=== PATIENT | female | born 1970 | race Two or more races ===

== ENCOUNTER 2020-08-25 18:49 | Inpatient (IN) | payer MEDICAID ==
[~2020-08-25] VITALS: Ht 154.9 cm; Wt 88.0 kg
[2020-08-25] MEDS ORDERED: MORPHINE SULFATE 4 MG/ML SYR/VIAL IV ONE (19:15)
[2020-08-25] MEDS ORDERED: SODIUM CHLORIDE 0.9% 500 ML IVB ONE (19:15)
[2020-08-25] MEDS ORDERED: ONDANSETRON HCL 4 MG/2 ML VIAL IV ONE (19:15)
[2020-08-25] MEDS ORDERED: metroNIDAZOLE 500MG/100ML 100 ML IV ONE (20:15)
[2020-08-26 00:40] LABS: Basophils # (auto) 0 10 ^3/uL (0-0.2); Basophils % (auto) 0.5 % (0.0-2.0); Eosinophils # (auto) 0.1 10 ^3/uL (0-0.8); Eosinophils % (auto) 1.2 % (0.0-7.0); Hematocrit 39.8 % (36.0-46.0); Hemoglobin 14.1 g/dL (12.2-16.2); Lymphocytes # (auto) 1.6 10 ^3/uL (0.4-5.4); Lymphocytes % (auto) 18.8 % (10.0-50.0); Mean Corpuscular Hemoglobin 32.3 pg (28.0-32.0); Mean Corpuscular Hgb Conc. 35.4 g/dL (32.0-36.0); Mean Corpuscular Volume 91.3 fL (80.0-100.0); Monocytes # (auto) 0.8 10 ^3/uL (0-1.3); Monocytes % (auto) 8.8 % (0.0-12.0); Neutrophils # (auto) 6.2 10 ^3/uL (1.6-8.6); Neutrophils % (auto) 70.7 % (37.0-80.0); Nucleated Red Blood Cells % 0.1 %; Red Blood Cells 4.36 10^6/uL (4.0-5.20); Red Cell Distribution Width 13.5 % (11.8-14.3); White Blood Cell 8.7 10^3/uL (4.4-10.8)
[2020-08-26] MEDS ORDERED: cefTRIAXone 1GM/50ML D5W 50 ML IV ONE (00:45)
[2020-08-26] MEDS ORDERED: ONDANSETRON HCL 4 MG/2 ML VIAL IV PRN (00:45)
[2020-08-26] MEDS: SODIUM CHLORIDE 0.9% 1,000 ML IV SCH ×2 (00:45→12:31)
[2020-08-26 01:05] LABS: Alanine Aminotransferase 127 U/L (13-56); Anion Gap 8 (5-15); Aspartate Aminotransferase 249 U/L (15-37); BUN/Creatinine Ratio 17.3; Blood Urea Nitrogen 13 mg/dL (7-18); Calcium 8.7 mg/dL (8.5-10.1); Carbon Dioxide 24 mmol/L (21-32); Chloride 109 mmol/L (98-107); GFR African American 104 mL/min; GFR Non-African American 86 mL/min; Glucose 91 mg/dL (74-106); Lipase 175 U/L (73-393); Sodium 141 mmol/L (136-145)
[2020-08-26 01:10] LABS: Alkaline Phosphatase 114 U/L (45-117); Bilirubin, Total 0.6 mg/dL (0.2-1.0); Total Protein 7.7 g/dL (6.4-8.2)
[2020-08-26] MEDS: metroNIDAZOLE 500MG/100ML 100 ML IV SCH ×3 (06:17→23:11)
[2020-08-26] MEDS: PANTOPRAZOLE 40 MG/10 ML VIAL INJ IV SCH (08:18)
[2020-08-26] MEDS: cefTRIAXone 1GM/50ML D5W 50 ML IV SCH (08:18)
[2020-08-26 09:02] LABS: Urine Bacteria FEW /hpf (None Seen); Urine Blood Negative /uL (Negative); Urine Mucus FEW (None Seen); Urine Specific Gravity 1.029 (1.001-1.035); Urine WBC 9 /hpf (0 - 5)
[2020-08-26] MEDS ORDERED: LANS15CA25 PO (11:50)
[2020-08-26] MEDS ORDERED: NITR0.4S29 SL (11:50)
[2020-08-26] MEDS ORDERED: HYDR200T36 PO (11:50)
[2020-08-26] MEDS ORDERED: CHOL500023 PO (11:50)
[2020-08-26] MEDS ORDERED: LEVO88TA4 PO (11:50)
[2020-08-26] MEDS ORDERED: MONT-8 PO (11:50)
[2020-08-26] MEDS ORDERED: METH2.5T PO (11:50)
[2020-08-26 14:25] VITALS: BP 121/76
[2020-08-26 16:49] VITALS: BP 107/65
[2020-08-26] MEDS ORDERED: INFLUENZA QUAD 2020-2021 0.5 ML SYRG IM ONE (19:00)
[2020-08-26 22:00] VITALS: BP 109/59
[2020-08-26] MEDS: FAMOTIDINE (10MG/ML) 2ML VL IV SCH (23:12)
[2020-08-26 23:40] VITALS: BP 106/71
[2020-08-26] MEDS: MORPHINE SULFATE 4 MG/ML SYR/VIAL IV PRN (23:43)
[2020-08-27] MEDS: SODIUM CHLORIDE 0.9% 1,000 ML IV SCH ×2 (00:32→15:04)
[2020-08-27 05:00] VITALS: BP 107/59
[2020-08-27 05:39] LABS: Basophils # (auto) 0 10 ^3/uL (0-0.2); Basophils % (auto) 0.7 % (0.0-2.0); Eosinophils # (auto) 0.3 10 ^3/uL (0-0.8); Eosinophils % (auto) 5.7 % (0.0-7.0); Hematocrit 38.9 % (36.0-46.0); Hemoglobin 13.4 g/dL (12.2-16.2); Lymphocytes # (auto) 1.6 10 ^3/uL (0.4-5.4); Mean Corpuscular Hemoglobin 31.9 pg (28.0-32.0); Mean Corpuscular Hgb Conc. 34.5 g/dL (32.0-36.0); Mean Corpuscular Volume 92.4 fL (80.0-100.0); Monocytes # (auto) 0.5 10 ^3/uL (0-1.3); Neutrophils # (auto) 3.2 10 ^3/uL (1.6-8.6); Neutrophils % (auto) 56.6 % (37.0-80.0); Red Cell Distribution Width 13.9 % (11.8-14.3); White Blood Cell 5.7 10^3/uL (4.4-10.8)
[2020-08-27] MEDS: metroNIDAZOLE 500MG/100ML 100 ML IV SCH ×3 (05:43→21:58)
[2020-08-27 05:48] LABS: INR 1.01 (0.9-1.15); Partial Thromboplastin Time 26.3 sec (23.0-31.2)
[2020-08-27 06:00] LABS: Potassium 3.7 mmol/L (3.5-5.1)
[2020-08-27 06:09] LABS: Albumin 3.2 g/dL (3.4-5.0); BUN/Creatinine Ratio 11.7; Bilirubin, Total 0.5 mg/dL (0.2-1.0); Calcium 7.6 mg/dL (8.5-10.1); Magnesium 2.1 mg/dL (1.6-2.6); Phosphorus 2.9 mg/dL (2.5-4.90); Total Protein 6.4 g/dL (6.4-8.2)
[2020-08-27] MEDS ORDERED: MONTELUKAST SODIUM 10 MG TAB PO PRN (10:00)
[2020-08-27] MEDS: PANTOPRAZOLE 40 MG/10 ML VIAL INJ IV SCH (10:31)
[2020-08-27] MEDS: FAMOTIDINE (10MG/ML) 2ML VL IV SCH ×2 (10:31→21:58)
[2020-08-27] MEDS: cefTRIAXone 1GM/50ML D5W 50 ML IV SCH (10:31)
[2020-08-27] MEDS: MORPHINE SULFATE 4 MG/ML SYR/VIAL IV PRN ×3 (11:10→20:57)
[2020-08-27] MEDS: hydrOXYchloroQUINE SULFATE 200 MG TAB PO SCH (11:10)
[2020-08-27] MEDS: SUCRALFATE 1 GM/10 ML ORAL SUSP PO SCH ×2 (16:32→21:58)
[2020-08-27 20:28] VITALS: BP_SYST 115; BP_SYST 135; BP_DIAS 72; BP_DIAS 83
[2020-08-27 22:00] VITALS: BP 115/72
[2020-08-27] MEDS ORDERED: ATORVASTATIN 20 MG TAB PO SCH (22:00)
[2020-08-28] MEDS: SODIUM CHLORIDE 0.9% 1,000 ML IV SCH (01:27)
[2020-08-28 05:00] VITALS: BP 107/69
[2020-08-28 06:21] LABS: Potassium 3.7 mmol/L (3.5-5.1)
[2020-08-28 06:27] LABS: Albumin 3.1 g/dL (3.4-5.0); Bilirubin, Direct 0.1 mg/dL (0-0.2); Bilirubin, Total 0.4 mg/dL (0.2-1.0); Total Protein 6.3 g/dL (6.4-8.2)
[2020-08-28] MEDS: metroNIDAZOLE 500MG/100ML 100 ML IV SCH ×2 (06:27→14:42)
[2020-08-28] MEDS: SUCRALFATE 1 GM/10 ML ORAL SUSP PO SCH ×2 (06:28→11:40)
[2020-08-28] MEDS ORDERED: LEVOTHYROXINE SODIUM 88 MCG TAB PO SCH (07:00)
[2020-08-28 08:00] VITALS: BP 117/74
[2020-08-28 09:27] LABS: Hepatitis B Surface Antibody Negative
[2020-08-28] MEDS: cefTRIAXone 1GM/50ML D5W 50 ML IV SCH (09:31)
[2020-08-28] MEDS: FAMOTIDINE (10MG/ML) 2ML VL IV SCH (09:31)
[2020-08-28] MEDS: hydrOXYchloroQUINE SULFATE 200 MG TAB PO SCH (09:32)
[2020-08-28] MEDS: PANTOPRAZOLE 40 MG/10 ML VIAL INJ IV SCH (09:32)
[2020-08-28] MEDS ORDERED: ASPirin 81 mg TAB PO SCH (10:00)
[2020-08-28] MEDS ORDERED: ENOXAPARIN SOD 40 MG/0.4 ML SYRINGE SC SCH (10:00)
[2020-08-28 10:03] LABS: Hepatitis A Total Antibody Positive
[2020-08-28] MEDS: MORPHINE SULFATE 4 MG/ML SYR/VIAL IV PRN (11:57)
[2020-08-28 13:02] LABS: Hepatitis B Core Total AB Negative; Hepatitis B Surface Antigen Negative (Negative)
[2020-08-28 13:04] LABS: Hepatitis C Antibody Reactive (Negative)
[2020-08-28 13:30] LABS: Hepatitis A Ab IgM Negative; Hepatitis B Core IgM Negative; Hepatitis B Surface Antigen Negative (Negative); Hepatitis C Antibody Reactive (Negative)
[2020-08-28] MEDS ORDERED: SODIUM CHLORIDE 0.9% 1,000 ML IV SCH (14:45)
[2020-08-28 15:50] VITALS: BP 111/76
== END 2020-08-28 16:45 | disposition left against medical advice (07) | DRG 244 ==
LOC: ER 18:49 → OVERFLOW 18:50 → CENTRAL 08-26 14:20
PROVIDERS: ADMIT Nurse Practitioner; ATTEND Internal Medicine
DX: K57.32 Diverticulitis of large intestine without perforation or abscess without bleeding (principal); E03.9 Hypothyroidism, unspecified; R65.10 Systemic inflammatory response syndrome (SIRS) of non-infectious origin without acute organ dysfunction; K21.9 Gastro-esophageal reflux disease without esophagitis; E66.9 Obesity, unspecified; Z68.36 Body mass index [BMI] 36.0-36.9, adult; J45.909 Unspecified asthma, uncomplicated; M06.9 Rheumatoid arthritis, unspecified; Z20.822 Contact with and (suspected) exposure to COVID-19; M32.9 Systemic lupus erythematosus, unspecified; K76.0 Fatty (change of) liver, not elsewhere classified; Z80.9 Family history of malignant neoplasm, unspecified; Z83.3 Family history of diabetes mellitus; M51.36 Other intervertebral disc degeneration, lumbar region; D17.9 Benign lipomatous neoplasm, unspecified; K81.0 Acute cholecystitis; N39.0 Urinary tract infection, site not specified; B17.9 Acute viral hepatitis, unspecified; Z53.29 Procedure and treatment not carried out because of patient's decision for other reasons
CPT/HCPCS: 36415; 74176; 76705; 78226; 80053; 80074; 80076; 81001; 83690; 83735; 84100; 84132; 84443; 84484; 85025; 85610; 85730; 86704; 86706; 86708; 86803; 87340; 87426; 93005; 96365; 96367; 96368; 96375; C9113; G0378; J0696; J2405; J3490